=== PATIENT | male | born 1935 | race Caucasian/White ===

== ENCOUNTER 2020-06-09 08:35 | Inpatient (IN) | payer OTHER, SELFPAY ==
[~2020-06-09] VITALS: Ht 152.4 cm; Wt 48.1 kg
[2020-06-09 08:35] VITALS: BP_SYST 134
--- NOTE | 2020-06-09 08:35 | NUR ---
Placed in room 8 . Placed on teletypesetter monitor, blood pressure machine and pulse oximeter. To gown for exam. Side rails up. Report given to WAYNE Huddleston.
--- NOTE | 2020-06-09 08:50 | NUR ---
Patient presented t ER C/O SOB. Patient BIB ACLS A&Ox3, skin pink & warm, denies pain, denies N/V/D, respirations equal bilat, PT placed on 2LPM NC, placed on cardiac technician and pulse ox monitor. Per EMS Family of PT report using home pulse-ox monior with saturation reading 70%.
[2020-06-09] MEDS ORDERED: FOSI20TA PO (09:08)
[2020-06-09] MEDS ORDERED: [UNRECOGNIZED DRUG - CODE] PO (09:08)
[2020-06-09] MEDS ORDERED: FINA5TAB11 PO (09:08)
[2020-06-09] MEDS ORDERED: PENT400T17 PO (09:08)
[2020-06-09] MEDS ORDERED: HYDR12.585 PO (09:08)
[2020-06-09] MEDS ORDERED: SIMV-43 PO (09:09)
[2020-06-09] MEDS ORDERED: CETI10CA11 PO (09:09)
[2020-06-09] MEDS ORDERED: DONE10TA4 PO (09:09)
[2020-06-09] MEDS ORDERED: MULT-1164 PO (09:09)
--- NOTE | 2020-06-09 09:09 | NUR ---
Medication reconciliation completed with information provided by patient. Any prior medication reconciliation on file was reviewed and corrected.
--- NOTE | 2020-06-09 09:20 | NUR ---
ER at bedside examining patient.
--- NOTE | 2020-06-09 09:40 | NUR ---
Urine specimen obtained& Covid-19 specimen obtained and sent to lab.
[2020-06-09 10:14] LABS: BASOPHILS # (AUTO) 0.1 K/uL (0.0-0.2); BASOPHILS % (AUTO) 0.6 % (0.0-2.0); EOSINOPHILS # (AUTO) 0.2 K/uL (0.0-0.4); EOSINOPHILS % (AUTO) 2.2 % (0.0-4.0); HEMATOCRIT 40.8 % (36-54); HEMOGLOBIN 13.7 g/dL (14.0-18.0); LYMPHOCYTES # (AUTO) 1.1 K/uL (1.0-5.5); MEAN CORPUSCULAR HEMOGLOBIN 29 pg (27-31); MEAN CORPUSCULAR HGB CONC 34 % (32-36); MEAN CORPUSCULAR VOLUME 85 fL (79.0-98.0); MONOCYTES # (AUTO) 0.6 K/uL (0.0-1.0); MONOCYTES % (AUTO) 5.5 % (1.7-9.3); NEUTROPHILS # (AUTO) 8.9 K/uL (1.8-7.7); NEUTROPHILS % (AUTO) 81.7 % (40.0-70.0); PLATELET COUNT (AUTO) 392 K/uL (130-430); RED BLOOD CELL COUNT(AUTO) 4.81 MIL/uL (4.2-6.2); RED CELL DISTRIBUTION WIDTH 17.9 % (9.0-15.0); WHITE BLOOD COUNT (AUTO) 10.9 K/uL (4.8-10.8)
[2020-06-09 10:16] LABS: BILIRUBIN,URINE NEGATIVE (NEGATIVE); BLOOD, URINE NEGATIVE (NEGATIVE); CLARITY/URINE SL CLOUDY (CLEAR); COLOR,URINE YELLOW (YELLOW); GLUCOSE,URINE NEGATIVE (NEGATIVE); KETONES,URINE NEGATIVE (NEGATIVE); LEUKOCYTE ESTERASE ,URINE NEGATIVE (NEGATIVE); NITRITE, URINE NEGATIVE (NEGATIVE); PH,URINE 6.5 (5.0-8.0); PROTEIN URINE NEGATIVE (NEGATIVE); UROBILINOGEN,URINE 0.2 (0.2-1.0)
[2020-06-09 10:27] LABS: ALANINE AMINOTRANSFERASE 27 U/L (12-78); ALBUMIN 2.3 g/dL (3.4-4.8); ASPARTATE AMINOTRANSFERASE 25 U/L (10-37); C-REACTIVE PROTEIN QUANT 5.1 mg/dL (0-0.5); CALCIUM 10.1 mg/dL (8.4-11.0); CHLORIDE 105 mmol/L (98-107); CREATININE 0.76 mg/dL (0.55-1.30); GLUCOSE 122 mg/dL (70-99); LACTATE DEHYDROGENASE 125 U/L (85-227); TOTAL BILIRUBIN 0.5 mg/dL (0.0-1.0); UREA NITROGEN, BLOOD 22 mg/dL (8-21)
[2020-06-09 10:30] LABS: INR 1.1 (0.80-1.20); PROTHROMBIN TIME 11.2 SECS (9.5-12.5)
[2020-06-09 10:35] LABS: ANION GAP 7 (5-15); POTASSIUM 3.7 mmol/L (3.5-5.1); SODIUM SERUM 138 mmol/L (136-145)
[2020-06-09] MEDS ORDERED: PIPERACILLIN/TAZO 3.375 GM in NS 50 ML IV ONE (12:15)
--- NOTE | 2020-06-09 12:20 | NUR ---
Recieved admit orders from Dr. Mathew
[2020-06-09] MEDS ORDERED: POTASSIUM CHLORIDE 20 MEQ TAB.PRT.SR PO PRN (12:30)
[2020-06-09] MEDS ORDERED: DOCUSATE SODIUM 100 MG CAPSULE PO PRN (12:30)
[2020-06-09] MEDS ORDERED: ACETAMINOPHEN 325 MG TABLET PO PRN (12:30)
[2020-06-09] MEDS ORDERED: MAGNESIUM SULFATE 50 ML IV PRN (12:30)
[2020-06-09] MEDS ORDERED: ONDANSETRON HCL 4 MG/2 ML VIAL IVP PRN (12:30)
[2020-06-09] MEDS ORDERED: MUPIROCIN 2% TOPICAL OINTMENT 22 GM NS PRN (12:30)
[2020-06-09] MEDS ORDERED: LORazepam 2 MG/ML VIAL IVP PRN (12:30)
--- NOTE | 2020-06-09 14:48 | NUR ---
CONSULTATION PAGED/CALLED Reason for Consultation: [] PNA R/O COVID Person Who was Notified: [] JAZMYN Consulting Physician: [] DR WEBBER Fibreglass Gun Hand Specialty: [] ID Ordering Physician: [] DR MCLEAN
--- NOTE | 2020-06-09 15:45 | NUR ---
REPORT TO DANA BLACK
[2020-06-09] MEDS ORDERED: PIPERACILLIN/TAZOBACTAM 3.375 GM/VIAL (ZOSYN) IV ONE (15:52)
--- NOTE | 2020-06-09 16:13 | NUR ---
Patient will be admitted to care of Dr. Mathew. Admitted to telemetry unit. Will go to room 126B. Belongings list completed. Complete and up to date summary report printed. SBAR report to be given at bedside with opportunity for questions.
--- NOTE | 2020-06-09 16:25 | NUR ---
ADMISSION NOTE Received patient from ER via leslie, received report from DANA BLACK. Patient admitted with diagnosis of PNEUMONIA R/O COVID. Patient oriented to hospital routine, call light, toileting and safety-patient verbalized understanding.
--- NOTE | 2020-06-09 16:33 | NUR ---
CONSULTATION PAGED/CALLED Reason for Consultation: [] PNA R/O COVID Person Who was Notified: [] PAGED WHIT MD DIRECTLY (DR CERVANTES) Consulting Physician: [] DR CERVANTES Denier Control Operator Specialty: [] WHIT Ordering Physician: [] DR MCLEAN
[2020-06-09 16:47] VITALS: BP_SYST 132
--- NOTE | 2020-06-09 16:54 | NUR ---
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 SPOKE TO CARLOS.
--- NOTE | 2020-06-09 17:00 | NUR ---
Patient awake/alert high fowlers water served with coughing no changed aspiration precaution, DR. Mathew informed kept NPO except meds until swallow evaluation is completed, kept on IV hydration ,no list of emergency contact to get full medical histories.
[2020-06-09] MEDS: PIPERACILLIN/TAZO 3.375/DEX-IS 50 ML IV SCH (17:30)
[2020-06-09] MEDS: D5W 500 ML IV SCH ×2 (17:40→23:45)
--- NOTE | 2020-06-09 17:50 | NUR ---
SPEECH THERAPY CONSULT WAS CALLED TO JAYME RE: SWALLOWING EVAL. LEFT A VOICE MESSAGE.
[2020-06-09 19:35] VITALS: BP_SYST 144
--- NOTE | 2020-06-09 19:40 | NUR ---
INITIAL NOTES PATIENT IS STABLE AND LAYING IN BED. NO S/S OF RESPIRATORY DISTRESS NOTED. CALL LIGHT IN REACH. PATIENT UNSUCCESSFULLY DEMONSTRATES USAGE OF CALL LIGHT. WILL CONTINUE TO MONITOR. BED IS LOCKED, ALARMED, AND AT THE LOWEST POSITION. FALL, SAFETY, ASPIRATION, COVID, AND RESPIRATORY PRECAUTIONS WILL BE IN PLACE THROUGHOUT THE SHIFT. PLAN OF CARE IS DISCUSSED WITH PATIENT.
[2020-06-09] MEDS: HEPARIN SODIUM,PORCINE 5,000 UNITS/ML VIAL SUBCUT SCH (21:00)
[2020-06-10] VITALS: BP_SYST 145
[2020-06-10] MEDS: PIPERACILLIN/TAZO 3.375/DEX-IS 50 ML IV SCH ×5 (00:08→23:15)
--- NOTE | 2020-06-10 00:20 | NUR ---
PATIENT HAD A BOWEL MOVEMENT AT THIS TIME. PATIENT WAS CLEANED, AND CHANGED. PATIENT REPOSITION FOR COMFORT. PATIENT WAS SUCTIONED AT THIS TIME.
[2020-06-10] MEDS: D5W 500 ML IV SCH ×3 (06:00→19:20)
[2020-06-10 07:17] LABS: ANION GAP 5 (5-15); C-REACTIVE PROTEIN QUANT 6.8 mg/dL (0-0.5); CALCIUM 9.5 mg/dL (8.4-11.0); CHLORIDE 100 mmol/L (98-107); CREATININE 0.73 mg/dL (0.55-1.30); GLUCOSE 122 mg/dL (70-99); POTASSIUM 3.3 mmol/L (3.5-5.1); SODIUM SERUM 131 mmol/L (136-145); UREA NITROGEN, BLOOD 16 mg/dL (8-21)
[2020-06-10 07:18] LABS: BASOPHILS # (AUTO) 0.1 K/uL (0.0-0.2); BASOPHILS % (AUTO) 0.5 % (0.0-2.0); EOSINOPHILS # (AUTO) 0.2 K/uL (0.0-0.4); EOSINOPHILS % (AUTO) 2.4 % (0.0-4.0); HEMATOCRIT 40.3 % (36-54); HEMOGLOBIN 13.4 g/dL (14.0-18.0); LYMPHOCYTES # (AUTO) 0.7 K/uL (1.0-5.5); LYMPHOCYTES % (AUTO) 7.4 % (20.5-51.5); MEAN CORPUSCULAR HEMOGLOBIN 28 pg (27-31); MEAN CORPUSCULAR HGB CONC 33 % (32-36); MEAN CORPUSCULAR VOLUME 85 fL (79.0-98.0); MONOCYTES # (AUTO) 0.6 K/uL (0.0-1.0); MONOCYTES % (AUTO) 5.9 % (1.7-9.3); NEUTROPHILS # (AUTO) 8.2 K/uL (1.8-7.7); NEUTROPHILS % (AUTO) 83.8 % (40.0-70.0); PLATELET COUNT (AUTO) 389 K/uL (130-430); RED BLOOD CELL COUNT(AUTO) 4.75 MIL/uL (4.2-6.2); RED CELL DISTRIBUTION WIDTH 18.2 % (9.0-15.0); WHITE BLOOD COUNT (AUTO) 9.8 K/uL (4.8-10.8)
--- NOTE | 2020-06-10 07:28 | NUR ---
CLOSING NOTES PATIENT IS STABLE AND LAYING IN BED. NO S/S OF RESPIRATORY DISTRESS NOTED. CALL LIGHT IN REACH. ALL NEEDS MET. SBAR REPORT ENDORSED TO AM NURSE.
[2020-06-10] MEDS: SIMVASTATIN 20 MG TABLET PO SCH (08:38)
[2020-06-10] MEDS: LEVOTHYROXINE SODIUM 0.112 MG TABLET PO SCH (08:38)
[2020-06-10] MEDS: ASCORBIC ACID 500 MG TABLET PO SCH (08:38)
[2020-06-10] MEDS: FINASTERIDE 5 MG TABLET (PROSCAR) PO SCH (08:39)
[2020-06-10] MEDS: CHOLECALCIFEROL (VITAMIN D3) 2,000 UNIT TABLET PO SCH (08:39)
[2020-06-10] MEDS: HEPARIN SODIUM,PORCINE 5,000 UNITS/ML VIAL SUBCUT SCH ×2 (08:40→21:58)
[2020-06-10 09:01] VITALS: BP_SYST 147
[2020-06-10] MEDS: lisinopriL 20 MG TABLET PO SCH (09:02)
--- NOTE | 2020-06-10 11:08 | NUR ---
Nutrition Update Fredy Scale 14 noted. Pt admitted for pneumonia r/o COVID. Diet: NPO BMI: 20.5 kg/m2 RD to follow per nutrition care standards.
[2020-06-10 11:39] VITALS: BP_SYST 136
--- NOTE | 2020-06-10 13:11 | NUR ---
S.T. SWALLOW EVAL SWALLOW EVAL COMPLETED. 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 NO COUGHING NOTED DURING EVAL, BUT COUGHING ON THIN LIQUIDS REPORTED BY NURSING AND DAUGHTER. PT EXHIBITS WET VOCAL QUALITY WITH AND WITHOUT P.O. ASPIRATION RISK PRESENT. PT IS AT VERY HIGH RISK FOR DEHYDRATION AND FURTHER MALNUTRITION. EXTENSIVE CONSULTATION AND EDUCATION GIVEN TO DTR ARASH VIA PHONE. DTR DECLINED FURTHER SWALLOW ASSESSMENT. THEY ARE AWARE OF PT'S POOR INTAKE AND THEY DO NOT WISH FOR HIM TO GET TUBE FEEDING. THEY ARE INTERESTED IN HOSPICE D/T POOR INTAKE. THEY ALSO WANT TO REQUEST ONCOLOGY CONSULT TO DETERMINE IF THE CANCER HAS RETURNED. REC: PUREE DIET W/ THICKENED LIQUIDS (NECTAR CONSISTENCY) TOLERATED. NURSE SKINNER NOTIFIED OF THE ABOVE CONVERSATION W/ DTR AND WILL FOLLOW UP W/ HER REQUESTS.
--- NOTE | 2020-06-10 13:27 | NUR ---
CONSULTATION PAGED/CALLED Reason for Consultation: LARYNGEAL CANCER Person Who was Notified: XIOMARA Consulting Physician: CAROLEE Slot Host Specialty: ONCOLOGIST Ordering Physician: JOSÉ
--- NOTE | 2020-06-10 16:04 | NUR ---
Dietitian Recommendations * Recommend pureed diet w/ NTL (ONS Ensure Enlive TID comes standard w/ this diet; provides 1050 kcal/day, 60 gm protein/day) * Encourage increase PO intakes LP, RD Please refer to Nutrition Assessment for details. Addendum: 06/10/20 at [address] Amended: Links added.
[2020-06-10 16:21] VITALS: BP_SYST 128
[2020-06-10] MEDS ORDERED: IOHEXOL 350 mgI/mL, 150 ML INFUS..BTL IV ONE (16:34)
--- NOTE | 2020-06-10 17:30 | NUR ---
Patient is getting confused/ forgetful removed IV CANNULA IN LEFT AC no bleeding reinserted to right AC G.20 kept secured will observed for any infiltration, assisted in feeding took only 6 spoonful of pureed diet tolerates well no aspiration poor appetite,kept on IV hydration
[2020-06-10 19:20] VITALS: BP_SYST 146
--- NOTE | 2020-06-10 19:20 | NUR ---
INITIAL NOTE PATIENT IS CONFUSED AND TRIED TO GET OUT OF BED. PATIENT WAS REORIENTED. PATIENT IS STABLE AND LAYING IN BED. NO S/S OF RESPIRATORY DISTRESS NOTED. CALL LIGHT IN REACH. PATIENT UNSUCCESSFULLY DEMONSTRATES USAGE OF CALL LIGHT. WILL CONTINUE TO MONITOR. BED IS LOCKED, ALARMED, AND AT THE LOWEST POSITION. FALL, SAFETY, ASPIRATION, RESPIRATORY, AND COVID PRECAUTIONS WILL BE IN PLACE THROUGHOUT THE SHIFT.
--- NOTE | 2020-06-10 21:20 | NUR ---
PATIENT HAD A BOWEL MOVEMENT. PATIENT WAS CLEANED, CHANGED, AND TURNED. PATIENT IS STABLE AND LAYING IN BED.
[2020-06-10] MEDS: ZOLPIDEM TARTRATE 5 MG TABLET PO PRN (21:42)
--- NOTE | 2020-06-10 23:20 | NUR ---
PATIENT URINATED AT THIS TIME. PATIENT WAS CLEANED, CHANGED, AND TURNED, PATIENT IS STABLE. NO S/S OF RESPIRATORY DISTRESS NOTED. CALL LIGHT IN REACH.
[2020-06-11 00:01] VITALS: BP_SYST 121
[2020-06-11] MEDS: D5W 500 ML IV SCH ×3 (00:45→14:42)
--- NOTE | 2020-06-11 00:51 | NUR ---
PATIENT IS CONFUSED. REORIENTED PATIENT. PATIENT IS LAYING IN BED. NO S/S OF RESPIRATORY DISTRESS NOTED. CALL LIGHT IN REACH.
--- NOTE | 2020-06-11 01:59 | NUR ---
PATIENT URINATED AT THIS TIME. PATIENT WAS CLEANED, CHANGED, AND TURNED, PATIENT IS STABLE. NO S/S OF RESPIRATORY DISTRESS NOTED. CALL LIGHT IN REACH.
--- NOTE | 2020-06-11 02:57 | NUR ---
PATIENT HAD A BOWEL MOVEMENT. PATIENT WAS CLEANED, CHANGED, AND TURNED. PATIENT IS STABLE AND LAYING IN BED.
--- NOTE | 2020-06-11 04:08 | NUR ---
PATIENT IS STABLE AND SLEEPING IN BED. NO S/S OF RESPIRATORY DISTRESS NOTED. CALL LIGHT IN REACH.
[2020-06-11] MEDS: PIPERACILLIN/TAZO 3.375/DEX-IS 50 ML IV SCH ×3 (05:01→16:54)
--- NOTE | 2020-06-11 05:55 | NUR ---
PATIENT URINATED AND HAD A SMALL BOWEL MOVEMENT AT THIS TIME. PT WAS CLEANED, CHANGED, AND TURNED. NO S/S OF RESPIRATORY DISTRESS NOTED.CALL LIGHT IN REACH.
--- NOTE | 2020-06-11 06:15 | NUR ---
CLOSING NOTE PATIENT IS STABLE AND WATCHING TV IN BED. NO S/S OF RESPIRATORY DISTRESS NOTED. CALL LIGHT IN REACH. BED IS LOCKED, ALARMED, AND AT THE LOWEST POSITION. FALL, SAFETY, ASPIRATION, COVID, AND RESPIRATORY PRECAUTIONS HAS BEEN IN PLACE THROUGHOUT THE SHIFT. WILL CONTINUE TO MONITOR UNTIL SBAR REPORT IS ENDORSED TO AM NURSE.
[2020-06-11 06:47] LABS: BASOPHILS # (AUTO) 0.1 K/uL (0.0-0.2); BASOPHILS % (AUTO) 0.5 % (0.0-2.0); EOSINOPHILS # (AUTO) 0.2 K/uL (0.0-0.4); EOSINOPHILS % (AUTO) 1.5 % (0.0-4.0); HEMATOCRIT 41.1 % (36-54); HEMOGLOBIN 13.8 g/dL (14.0-18.0); LYMPHOCYTES # (AUTO) 0.7 K/uL (1.0-5.5); LYMPHOCYTES % (AUTO) 6.7 % (20.5-51.5); MEAN CORPUSCULAR HEMOGLOBIN 29 pg (27-31); MEAN CORPUSCULAR HGB CONC 34 % (32-36); MEAN CORPUSCULAR VOLUME 85 fL (79.0-98.0); MONOCYTES # (AUTO) 0.9 K/uL (0.0-1.0); MONOCYTES % (AUTO) 8.2 % (1.7-9.3); NEUTROPHILS % (AUTO) 83.1 % (40.0-70.0); PLATELET COUNT (AUTO) 392 K/uL (130-430); RED BLOOD CELL COUNT(AUTO) 4.83 MIL/uL (4.2-6.2); WHITE BLOOD COUNT (AUTO) 10.8 K/uL (4.8-10.8)
[2020-06-11 07:13] LABS: ANION GAP 9 (5-15); CALCIUM 9.1 mg/dL (8.4-11.0); CHLORIDE 101 mmol/L (98-107); CREATININE 0.68 mg/dL (0.55-1.30); GLUCOSE 107 mg/dL (70-99); POTASSIUM 3.7 mmol/L (3.5-5.1); SODIUM SERUM 133 mmol/L (136-145); UREA NITROGEN, BLOOD 11 mg/dL (8-21)
--- NOTE | 2020-06-11 08:00 | NUR ---
Patient awake/alert assisted in feeding with good appetite tolerates 75% of pureed diet,aspiration/safety /fall precaution, needs attended, on Covid/PUI isolation.
[2020-06-11 08:13] VITALS: BP_SYST 136
[2020-06-11] MEDS: DONEPEZIL HCL 5 MG TABLET (ARICEPT) PO SCH (08:15)
[2020-06-11] MEDS: LEVOTHYROXINE SODIUM 0.112 MG TABLET PO SCH (08:16)
[2020-06-11] MEDS: ASCORBIC ACID 500 MG TABLET PO SCH (08:16)
[2020-06-11] MEDS: lisinopriL 20 MG TABLET PO SCH (08:16)
[2020-06-11] MEDS: CHOLECALCIFEROL (VITAMIN D3) 2,000 UNIT TABLET PO SCH (08:16)
[2020-06-11] MEDS: FINASTERIDE 5 MG TABLET (PROSCAR) PO SCH (08:16)
[2020-06-11] MEDS: SIMVASTATIN 20 MG TABLET PO SCH (08:16)
[2020-06-11] MEDS: HEPARIN SODIUM,PORCINE 5,000 UNITS/ML VIAL SUBCUT SCH ×2 (08:17→21:45)
--- NOTE | 2020-06-11 08:45 | NUR ---
Patient seen and examined by Dr. VILLA spoke to daughter Tosha.
--- NOTE | 2020-06-11 09:03 | NUR ---
Out of bed kept sitting in the chair on high flow oxygen , using Incentive spirometer reaching 1000 ml, call light within reach , bedding changed, kept on continues pulse oximeter. Addendum: 06/11/20 at 0905 by Kianna Ramires RN Error charting not intended for this patient
--- NOTE | 2020-06-11 10:29 | NUR ---
Ct of the chest/neck completed
[2020-06-11 12:37] VITALS: BP_SYST 141
--- NOTE | 2020-06-11 13:22 | NUR ---
Perineal care given ,Patient repositioned by staff every 2 hours with pillow support.
--- NOTE | 2020-06-11 14:30 | NUR ---
Patient is agitated trying to get out of bed removing sheets, vitals sign stable , kept dry/clean, Ativan IV push given slowly safety/fall precaution initiated frequent monitoring.
--- NOTE | 2020-06-11 15:19 | NUR ---
Shipfitter Notes WATCH GUARD GATE called pts. daughter as his Covid results were still pending. Daughter, Tosha was informative and a good historian. She stated both parents moved in with her and her family about 7 years ago. The address on the facesheet will need to bu updated. request was sent by WATCH GUARD GATE. The [address] [place] [address]. The rest of the demographics were confirmed. Daughter stated she wants pt.to come back home and if pt's cancer is back, pt. is a DNR and does not want Chemo. Daughter stated if needed, they can explore hospice depending on prognosis and Drs' input. WATCH GUARD GATE shared with daughter, to converse with Dr. Mathew re. patients needs. Daughter stated if patient needs hospice, she would like home hospice. Daughter added, pt. can become disorientated, yelling in the middle of the night. He was Dx. with Demential about 1 1/2 years ago. At times pt. is disorientated and other times he is lucid. Daughter mentioned the drRoyce stated the pt. may need a feeding tube. Patient had been using a walker up until a few months ago. Now pt. will just state he is tired and sit in a recliner or just stay in bed. Patient's gate is unsteady and when he walks, he shuffles and does not move forward. Daughter stated his walking, his dementia are both getting progressively worse. Daughter also mentioned pt. had Cancer in the past and this may have affected his swallowing. WATCH GUARD GATE gave daughter YING Lozarose's phone number in the even she needs to speak to a high school social science teacher tomorrow.
[2020-06-11 16:15] VITALS: BP_SYST 146
--- NOTE | 2020-06-11 16:58 | NUR ---
Patient is awake confused,all tubes kept secured frequent monitoring, daughter Tosha informed regarding patient progress.
--- NOTE | 2020-06-11 19:00 | NUR ---
paged paged doctor radha who is profile mill operator tape control for maykel
--- NOTE | 2020-06-11 19:19 | NUR ---
2 page paged doctor radha
[2020-06-11 20:10] VITALS: BP_SYST 116
[2020-06-11] MEDS: ZOLPIDEM TARTRATE 5 MG TABLET PO PRN (21:43)
[2020-06-12 00:40] VITALS: BP_SYST 133
[2020-06-12] MEDS: PIPERACILLIN/TAZO 3.375/DEX-IS 50 ML IV SCH ×5 (00:40→23:17)
[2020-06-12] MEDS: D5W 500 ML IV SCH ×2 (00:45→08:00)
[2020-06-12 07:00] LABS: BASOPHILS # (AUTO) 0.1 K/uL (0.0-0.2); BASOPHILS % (AUTO) 0.5 % (0.0-2.0); EOSINOPHILS % (AUTO) 0.3 % (0.0-4.0); HEMATOCRIT 38.2 % (36-54); HEMOGLOBIN 12.8 g/dL (14.0-18.0); LYMPHOCYTES # (AUTO) 0.9 K/uL (1.0-5.5); LYMPHOCYTES % (AUTO) 5.1 % (20.5-51.5); MEAN CORPUSCULAR HEMOGLOBIN 28 pg (27-31); MEAN CORPUSCULAR HGB CONC 34 % (32-36); MEAN CORPUSCULAR VOLUME 84 fL (79.0-98.0); MONOCYTES # (AUTO) 0.7 K/uL (0.0-1.0); MONOCYTES % (AUTO) 3.7 % (1.7-9.3); NEUTROPHILS # (AUTO) 16.4 K/uL (1.8-7.7); NEUTROPHILS % (AUTO) 90.4 % (40.0-70.0); PLATELET COUNT (AUTO) 371 K/uL (130-430); RED BLOOD CELL COUNT(AUTO) 4.55 MIL/uL (4.2-6.2); RED CELL DISTRIBUTION WIDTH 17.7 % (9.0-15.0); WHITE BLOOD COUNT (AUTO) 18.2 K/uL (4.8-10.8)
[2020-06-12 07:18] LABS: ANION GAP 6 (5-15); CALCIUM 8.7 mg/dL (8.4-11.0); CHLORIDE 97 mmol/L (98-107); CREATININE 0.77 mg/dL (0.55-1.30); GLUCOSE 98 mg/dL (70-99); POTASSIUM 3.5 mmol/L (3.5-5.1); SODIUM SERUM 128 mmol/L (136-145); UREA NITROGEN, BLOOD 10 mg/dL (8-21)
--- NOTE | 2020-06-12 07:35 | NUR ---
AM ROUNDS: NIGHT NURSE DEREJE GAVE REPORT.PATIENT SLEEPING DURING ROUNDS. IV FLUIDS RUNNING AT RIGHT FOREARM INTACT. O2 2L/NC,GOOD SATURATION. CALL LIGHT WITH IN REACH. BED LOCKED AT LOWEST POSITION. BED ALARM ON. STABLE.
[2020-06-12 08:15] VITALS: BP_SYST 118
[2020-06-12] MEDS: SIMVASTATIN 20 MG TABLET PO SCH (08:54)
[2020-06-12] MEDS: CHOLECALCIFEROL (VITAMIN D3) 2,000 UNIT TABLET PO SCH (08:54)
[2020-06-12] MEDS: ASCORBIC ACID 500 MG TABLET PO SCH (08:54)
[2020-06-12] MEDS: LEVOTHYROXINE SODIUM 0.112 MG TABLET PO SCH (08:55)
[2020-06-12] MEDS: lisinopriL 20 MG TABLET PO SCH (08:55)
[2020-06-12] MEDS: HEPARIN SODIUM,PORCINE 5,000 UNITS/ML VIAL SUBCUT SCH ×2 (08:57→20:34)
[2020-06-12] MEDS: FINASTERIDE 5 MG TABLET (PROSCAR) PO SCH (09:10)
--- NOTE | 2020-06-12 09:25 | NUR ---
CRUSH MEDS; CRUSHED MEDS WITH CHOCOLATE PUDDING GIVEN AND TOLERATED WELL.
[2020-06-12] MEDS: DONEPEZIL HCL 5 MG TABLET (ARICEPT) PO SCH (10:32)
[2020-06-12 12:02] VITALS: BP_SYST 117
[2020-06-12] MEDS: D5NS 1,000 ML IV SCH (12:15)
--- NOTE | 2020-06-12 12:28 | NUR ---
URINE SAMPLE: CLEAN CATCH URINE SAMPLE SEND FOR CULTURE ORDERED.
--- NOTE | 2020-06-12 13:01 | NUR ---
FEEDER: TOOK HALF OF LUNCH. WELL TOLERATED. ASPIRATION PRECAUTION RENDERED.
--- NOTE | 2020-06-12 15:30 | NUR ---
RN ROUNDS: PATIENT RESTING. STABLE.
--- NOTE | 2020-06-12 17:50 | NUR ---
FEEDER: PUT PATIENT ON HIGH HARRELL'S POSITION.FED PATIENT AND TOOK MODERATE AMOUNT OF PUREE FOOD. ASPIRATION PRECAUTION RENDERED.
[2020-06-12] MEDS ORDERED: FLUCONAZOLE 100 mg/ NS 50 ML IV SCH (18:00)
[2020-06-12 18:09] VITALS: BP_SYST 114
--- NOTE | 2020-06-12 18:21 | NUR ---
END OF SHIFT: RESTING. IV FLUIDS RUNNING WELL AT RIGHT FOREARM INTACT. BED LOCKED AT LOWEST POSITION. BED ALARM ON. SAFETY MEASURES RENDERED.
--- NOTE | 2020-06-12 19:15 | NUR ---
OPENING NOTES RECEIVED PATIENT RESTING IN BED, NO SIGNS OF ACUTE RESPIRATORY DISTRESS NOTED, 2L NC. IV SITE PATENT, DRESSINGS C/D/I, IVF RUNNING. CALL LIGHT WITHIN REACH, BED ALARM ON, BED AT LOWEST POSITION. WILL CONTINUE TO MONITOR.
[2020-06-12 20:00] VITALS: BP_SYST 119
--- NOTE | 2020-06-12 21:20 | NUR ---
TURNING PROVIDED, NO SIGNS OF DISTRESS NOTED. WILL CONTINUE TO MONITOR.
[2020-06-12] MEDS: ZOLPIDEM TARTRATE 5 MG TABLET PO PRN (23:48)
[2020-06-13 00:18] VITALS: BP_SYST 130
--- NOTE | 2020-06-13 01:21 | NUR ---
PATIENT ASLEEP, RISE AND FALL OF CHEST NOTED, NO RESPIRATORY DISTRESS NOTED. WILL CONTINUE TO MONITOR.
[2020-06-13] MEDS: PIPERACILLIN/TAZO 3.375/DEX-IS 50 ML IV SCH ×2 (05:12→12:13)
--- NOTE | 2020-06-13 05:57 | NUR ---
CLOSING NOTES PATIENT IS RESTING, NO SIGNS OF ACUTE RESPIRATORY DISTRESS NOTED, HOB ELEVATED. COUGHING AT TIMES. IV SITE PATENT, DRESSINGS C/D/I, IVF RUNNING. INCONTINENCE CARE AND TURNING PROVIDED THROUGHOUT SHIFT. CALL LIGHT WITHIN REACH, BED ALARM ON, BED AT LOWEST POSITION. ALL NEEDS MET THROUGHOUT SHIFT. WILL ENDORSE CARE TO ONCOMING SHIFT.
[2020-06-13 06:23] LABS: BASOPHILS % (AUTO) 0.3 % (0.0-2.0); EOSINOPHILS # (AUTO) 0.1 K/uL (0.0-0.4); EOSINOPHILS % (AUTO) 0.7 % (0.0-4.0); HEMATOCRIT 38.8 % (36-54); HEMOGLOBIN 12.7 g/dL (14.0-18.0); LYMPHOCYTES # (AUTO) 0.6 K/uL (1.0-5.5); LYMPHOCYTES % (AUTO) 4.3 % (20.5-51.5); MEAN CORPUSCULAR HEMOGLOBIN 28 pg (27-31); MEAN CORPUSCULAR HGB CONC 33 % (32-36); MEAN CORPUSCULAR VOLUME 85 fL (79.0-98.0); MONOCYTES # (AUTO) 0.6 K/uL (0.0-1.0); NEUTROPHILS # (AUTO) 13.4 K/uL (1.8-7.7); NEUTROPHILS % (AUTO) 90.7 % (40.0-70.0); PLATELET COUNT (AUTO) 377 K/uL (130-430); RED BLOOD CELL COUNT(AUTO) 4.58 MIL/uL (4.2-6.2); RED CELL DISTRIBUTION WIDTH 18.2 % (9.0-15.0); WHITE BLOOD COUNT (AUTO) 14.8 K/uL (4.8-10.8)
[2020-06-13 06:36] LABS: ANION GAP 6 (5-15); CALCIUM 8.3 mg/dL (8.4-11.0); CHLORIDE 100 mmol/L (98-107); CREATININE 0.67 mg/dL (0.55-1.30); GLUCOSE 103 mg/dL (70-99); POTASSIUM 3.1 mmol/L (3.5-5.1); SODIUM SERUM 133 mmol/L (136-145); UREA NITROGEN, BLOOD 10 mg/dL (8-21)
--- NOTE | 2020-06-13 08:00 | NUR ---
ASSUMPTION OF CARE: RECEIVED PT A/A/OX3, DX: RISK FOR INADEQUATE VENTILATION, R/T PNEUMONIA, RULE OUT COVID, AFEBRILE, VSS, BREATH SOUNDS ARE CLEAR, DIMINISHED BILATERAL LL, BREATHING UNLABORED, SATURATING 94% ON 2L VIA NC, NO S/S OF DISTRESS, NO C/O PAIN OR DISCOMFORT, IV SITE INTACT, PATENT, NO REDNESS OR SWELLING, ORIENTED TO UNIT, CALL LIGHT PLLACED WITHIN REACH, WILL CONT' TO MONITOR AND ASSESS.
[2020-06-13 08:15] VITALS: BP_SYST 129
--- NOTE | 2020-06-13 08:20 | NUR ---
VISIT: AT BEDSIDE FOR ASSESSMENT OF PT, NEW ORDERS GIVEN, WILL CONT' WITH POC.
[2020-06-13] MEDS ORDERED: LEVO500T89 PO (08:31)
--- NOTE | 2020-06-13 09:19 | NUR ---
Coding And Reimbursement Specialist Note/Hospice Received hospice consult order and discharge home with hospice order. Phoned patient's daughter, Tosha [phone]. Tosha stated that Dr Almaguer had notified [facility] to contact her. Tosha was not made aware that there were other hospice options. Discussed that she could work with any hospice agency of her choosing. She does not have a preference and was happy with the services described to her by [facility] with [facility]. She will stay with [facility]. Discussed that patient may be discharged today or tomorrow. Tosha stated she is ready after [facility] delivers the DME including a hospital bed. She would like the Attending MD to phone her regarding the results of the CT scan. She confirmed that she does not want cancer treatment for the patient but would like to know the results. I called patient's nurse, Mayelin, and asked her to notify the attending. Phoned [facility] with [facility], cell [phone], office [phone], fax [phone]. They are arranging for DME to be delivered today and will arrange for patient to go home. Explained that some lab results are pending. They will discuss with the MD. Faxed patient information, including negative Covid PCR. Will remain available. Addendum: 06/13/20 at 1349 by Familia HE GLASS BEAD MAKER spoke with [facility]. Transportation has been set up to pick patient up from 15:30 to 16:00 with [facility]. Karo BLACK notified.
--- NOTE | 2020-06-13 09:30 | NUR ---
WELDING INSTRUCTOR': MORNING MEDS GIVEN, PER ORDERED BY Fiona, TOLERATED WELL, WILL CONT' WITH PLAN OF CARE.
[2020-06-13] MEDS: ASCORBIC ACID 500 MG TABLET PO SCH (09:42)
[2020-06-13] MEDS: LEVOTHYROXINE SODIUM 0.112 MG TABLET PO SCH (09:42)
[2020-06-13] MEDS: CHOLECALCIFEROL (VITAMIN D3) 2,000 UNIT TABLET PO SCH (09:42)
[2020-06-13] MEDS: SIMVASTATIN 20 MG TABLET PO SCH (09:43)
[2020-06-13] MEDS: lisinopriL 20 MG TABLET PO SCH (09:43)
[2020-06-13] MEDS: HEPARIN SODIUM,PORCINE 5,000 UNITS/ML VIAL SUBCUT SCH (09:53)
[2020-06-13] MEDS: FINASTERIDE 5 MG TABLET (PROSCAR) PO SCH (09:57)
--- NOTE | 2020-06-13 11:25 | NUR ---
Noted pt on comfort care per family's decisions and on hospice per bed huddle. RD will be available upon further request. CATRACHO,TIFFANI
--- NOTE | 2020-06-13 12:00 | NUR ---
NURSES NOTES: PT REMAINS STABLE, NO S/S OF DISTRESS, CALM, COOPERATIVE, DENIES HAVING PAIN AT THIS TIME, REORIENTED TO CALL LIGHT, PLACED WITHIN REACH, FALL PRECATIONS OBSERVED, WILL CONT' WITH POC.
[2020-06-13] MEDS: D5NS 1,000 ML IV SCH (12:14)
[2020-06-13 12:43] VITALS: BP_SYST 130
--- NOTE | 2020-06-13 14:00 | NUR ---
NURSES NOTES: PT ASLEEP, POSITIONED FOR COMFORT, BREATHING EASY, NO SIGNIFICANT CHANGES NOTED, WILL CONT' WITH POC.
[2020-06-13 14:55] VITALS: BP_SYST 130
--- NOTE | 2020-06-13 16:30 | NUR ---
DISCHARGE: PT DISCHARGED HOME WITH HOSPICE CARE [facility]IA [facility], ARRANGEMENTS MADE WITH FAMILY, ACKNOWLEDGEMENT MADE WITH DAUGHTER ARASH, VSS, ALL BELONGIN ACCOUNTED FOR AND RETURNED TO PT, ACCOMPANIED BY SUPERVISOR PAPER TESTING.
[2020-06-13 16:40] VITALS: BP_SYST 128
== END 2020-06-13 16:20 | disposition hospice, home (50) | DRG 177 ==
LOC: SED 08:35 → STU 12:20
PROVIDERS: ADMIT General Practice; ATTEND General Practice
DX: J69.0 Pneumonitis due to inhalation of food and vomit (principal); J96.01 Acute respiratory failure with hypoxia; E43 Unspecified severe protein-calorie malnutrition; J44.1 Chronic obstructive pulmonary disease with (acute) exacerbation; E03.9 Hypothyroidism, unspecified; E78.5 Hyperlipidemia, unspecified; F03.90 Unspecified dementia, unspecified severity, without behavioral disturbance, psychotic disturbance, mood disturbance, and anxiety; I10 Essential (primary) hypertension; Z51.5 Encounter for palliative care; J84.9 Interstitial pulmonary disease, unspecified; N40.0 Benign prostatic hyperplasia without lower urinary tract symptoms; R62.7 Adult failure to thrive; Z20.828 Contact with and (suspected) exposure to other viral communicable diseases; Z87.891 Personal history of nicotine dependence; Z68.20 Body mass index [BMI] 20.0-20.9, adult; Z92.21 Personal history of antineoplastic chemotherapy; Z92.3 Personal history of irradiation
CPT/HCPCS: 36415; 36430; 36600; 70491-TC; 71045; 71260-TC; 76376; 80048; 80053; 81003; 82550-TC; 82728; 82803-TC; 83036; 83605; 83615-TC; 83735-TC; 83880; 84443-TC; 84484; 85025; 85379; 85384-TC; 85610-TC; 85730-TC; 86140; 87040-TC; 87086; 92610-GN; 93005; 96365; 99285; G0378; J1450; J1644; J2060; J2543; J3475; Q9967; U0003